=== PATIENT | female | born 2000 | race Caucasian/White ===

== ENCOUNTER 2021-12-20 09:49 | Inpatient (IN) ==
[2021-12-20 10:34] LABS: Appearance Urine Clear (Clear); Bilirubin Urine Negative (Negative); Blood Urine Negative (Negative); Color Urine Yellow; Glucose Urine UA Negative (Negative); Ketones Urine Negative (Negative); Leukocyte Esterase Urine Negative (Negative); Nitrite Urine Negative (Negative); Protein Urine Negative (Negative); Specific Gravity Urine 1.021 (1.000-1.030); Urobilinogen Urine Negative (Negative); pH Urine 6.5 (4.5-7.5)
[2021-12-20 11:05] LABS: Basophils # (auto) 0.01 K/uL (0-0.2); Basophils % (auto) 0.2 %; Eosinophils % (auto) 2.2 %; Hematocrit (blood only) 38.4 % (37-47); Immature Granulocytes # (auto) 0.01 K/uL (0.00-0.02); Immature Granulocytes % (auto) 0.2 %; Lymphocytes # (auto) 0.95 K/uL (1.2-3.4); Lymphocytes % (auto) 21.2 %; Mean Corpuscular Hemoglobin 28.7 pg (25-34); Mean Corpuscular Hgb Conc 33.9 g/dL (32-36); Mean Corpuscular Volume 84.8 fL (80-100); Mean Platelet Volume 10.1 fL (7.4-10.4); Monocytes # (auto) 0.44 K/uL (0.11-0.59); Monocytes % (auto) 9.8 %; Neutrophils # (auto) 2.98 K/uL (1.4-6.5); Neutrophils % (auto) 66.4 %; Platelet Count 286 K/uL (130-400); RDW Coefficient of Variation 13.2 % (11.5-14.5); RDW Standard Deviation 40.4 fL (36.4-46.3); Red Blood Count 4.53 M/uL (4.2-5.4); White Blood Count 4.49 K/uL (4.8-10.8)
--- NOTE | 2021-12-20 11:08 | Emergency Department Note ---
Impression & Plan Mood disorder, Suicidal ideation ED Provider Note INFORMANT: Patient and family ED PROVIDER(S): Stef Banerjee MD CHIEF COMPLAINT: suicidal ideation PLAN: Disposition: Admitted Condition: Good Outpatient prescription management: none Referral: None MEDICAL DECISION MAKING: Patient presented because of direction from her psychiatrist. She noted doing suicidal. Patient is voluntary. Her physical examination was done in outlined below. She had no focal findings. Patient was evaluated by the hourly shift manager. Blood work and urinalysis were also obtained. Blood work and urine testing was unremarkable. Patient was reassessed and was doing relatively well. 3 S. was consulted after hourly shift manager evaluated patient. Patient was evaluated by [facility] in the emergency department. Patient was accepted for inpatient treatment. Triage Nursing notes reviewed and agree them. Vital Signs: reviewed and remarkable for no significant abnormalities Differential diagnosis: Mood disorder, infection, hypoglycemia, electrolyte abnormalities, cardiac sources, intracerebral event, toxicologic, trauma, neurologic, as well as other pathologies. Diagnostics interpreted by me: ECG: none Cardiac Monitoring: none Imaging studies: Deferred HPI: The patient is a 21 year old female who presents to the Emergency Room with complaints of suicidal ideation. This started over the last few days and is persisting. Patient states that she was manic but then started to come down and has been very depressed recently. She has feelings of anxiety at times. She was evaluated by her psychiatrist today and was recommended to come into the hospital for medication modification and stabilization. Patient is voluntary. The patient also notes the following associated symptoms, poor sleep, energy, and initiative. Patient states that she has planned but has not acted upon them. Notes occasional alcohol use and marijuana use. The patient has found no relieving factors. Current pain is rated as 0/10. No recent sick contacts or travel. Pt denies LOC, headache, fevers, chills, diaphoresis, visual changes, neck pain, chest pain, breathing difficulties, nausea, vomiting, abdominal pain, back pain, melena, hematochezia, urinary symptoms, numbness, weakness, lymphadenopathy, rash, or other complaints. ROS: See above HPI for pertinent positives & negatives. A total of 10 systems reviewed and were otherwise negative. PAST MEDICAL HISTORY:See Below , bipolar PAST SURGICAL HISTORY:See Below, FAMILY HISTORY:See Below SOCIAL HISTORY:See Below, occasional alcohol and marijuana HOME MEDICATIONS:See Below ALLERGIES:See Below VITALS:See Below PHYSICAL EXAMINATION: GENERAL: Awake, alert, depressed-appearing, in no distress HENT: Normocephalic, atraumatic. Oropharynx unremarkable. EYES: Normal conjunctiva. Sclera non-icteric. NECK: Inspection normal. Non-tender. Supple. No nuchal rigidity. FROM. No masses. RESPIRATORY: Clear to auscultation. No wheezes. No rales. Normal respiratory effort. CARDIAC: Normal rate. Normal rhythm. No murmurs. No rubs. Extremities warm and well perfused. Pulses equal. No JVD. GI: Soft, non-distended. No tenderness to palpation. No rebound or guarding. No masses. RECTAL: Deferred. MUSCULOSKELETAL: Atraumatic. Chest examination reveals no tenderness. The back is symmetrical on inspection without obvious abnormality. There is no CVA tenderness to palpation. No joint edema. LOWER EXTREMITIES: Calves are equal size bilaterally and non-tender. No edema. No discoloration. NEURO: Normal sensorium. No sensory or motor deficits noted. SKIN: No rash or jaundice noted. PSYCH: Depressed mood and flat affect. Suicidal ideation. No homicidal ideation. No hallucinations or delusions. Stef Banerjee MD Past Med/Surg History Medical History (Updated 12/20/21 @ 11:08 by Stef Banerjee MD) Laceration of eyebrow, left Pneumonia Surgical History No history of previous surgery Family History Denies family history of Ovarian cancer Breast cancer Colorectal cancer Uterine cancer Social History (Updated 04/12/21 @ 13:41 by YOLI Chino) Smoking Status: Never smoker Hx Alcohol Use: No Hx Substance Use: No Preferred Language: Mongolian Feels Safe at Home: No Allergies Allergies Allergy/AdvReac Type Severity Reaction Status Date / Time amoxicillin Allergy Verified 04/12/21 13:39 Home Meds Home Medications Medication Instructions Recorded Confirmed aripiprazole 5 mg tablet (Abilify) 5 mg PO DAILY 04/12/21 12/20/21 escitalopram oxalate 5 mg tablet 10 mg PO DAILY 04/12/21 12/20/21 (Lexapro) bupropion HCl 200 mg tablet,12 hr 200 mg PO DAILY 12/20/21 12/20/21 sustained-release (Wellbutrin SR) Results & Data (ED) Vital Signs Vital Signs - 24 hr 12/20/21 09:49 12/20/21 09:51 Temperature 36.4 C L Temperature Source Temporal Artery Scan Pulse Rate 67 Respiratory Rate 18 16 Respiratory Depth Normal Blood Pressure 122/79 Blood Pressure Mean 93 Pulse Oximetry 96 Oxygen Delivery Method Room Air Sepsis Recent Fever Within 48 Hours No Sepsis New/Unexplained Change in Mental Status No Sepsis Action Taken by Nursing No Action Required Laboratory Data Result diagrams: 12/20/21 10:45 12/20/21 10:45 Lab Results 12/20/21 12/20/21 12/20/21 Range/Units 10:01 10:01 10:08 WBC (4.8-10.8) K/uL RBC (4.2-5.4) M/uL Hgb (12.0-16.0) g/dL Hct (37-47) % MCV (80-100) fL MCH (25-34) pg MCHC (32-36) g/dL RDW Std Deviation (36.4-46.3) fL RDW Coeff of Felix (11.5-14.5) % Plt Count (130-400) K/uL MPV (7.4-10.4) fL Immature Gran % (Auto) % Neut % (Auto) % Lymph % (Auto) % [place] % (Auto) % Eos % (Auto) % Baso % (Auto) % Neut # (Auto) (1.4-6.5) K/uL Lymph # (Auto) (1.2-3.4) K/uL [place] # (Auto) (0.11-0.59) K/uL Eos # (Auto) (0-0.5) K/uL Baso # (Auto) (0-0.2) K/uL Immature Gran # (Auto) (0.00-0.02) K/uL Sodium (136-145) mmol/L Potassium (3.5-5.1) mmol/L Chloride (98-107) mmol/L Carbon Dioxide (21-32) mmol/L Anion Gap (3-11) BUN (6-23) mg/dl Creatinine (0.6-1.2) mg/dl Est Cr Clr Drug Dosing ml/min Est GFR ( Amer) ml/min Est GFR (Non-Af Amer) ml/min BUN/Creatinine Ratio (10-20) Glucose (70-99(Fasting)) mg/dl Calcium (8.5-10.1) mg/dl Total Bilirubin (0.2-1.0) mg/dl AST (13-39) U/L ALT (7-52) U/L Alkaline Phosphatase (34-104) U/L Total Protein (6.0-8.3) gm/dl Albumin (3.4-5.0) gm/dl Globulin (2.5-4.0) gm/dl Albumin/Globulin Ratio (0.9-2) TSH (0.300-4.500) uIu/ml Urine Color Yellow Urine Appearance Clear (Clear) Urine pH 6.5 (4.5-7.5) Ur Specific [place] 1.021 (1.000-1.030) Urine Protein Negative (Negative) Urine Glucose (UA) Negative (Negative) Urine Ketones Negative (Negative) Urine Blood Negative (Negative) Urine Nitrite Negative (Negative) Urine Bilirubin Negative (Negative) Urine Urobilinogen Negative (Negative) Ur Leukocyte Esterase Negative (Negative) POC Ur Test (NEG) Salicylates (3.0-30) mg/dl Urine Opiates Screen Neg (Neg) Ur Methadone, Qual Neg (Neg) Acetaminophen (10-30) ug/ml Urine Barbiturates Neg (Neg) Ur Phencyclidine (PCP) Neg (Neg) U Amphetamin/Meth Scrn Neg (Neg) MDMA (Ecstasy) Screen Pos H (Neg) U Benzodiazepines Scrn Neg (Neg) Ur Cocaine Metabolite Neg (Neg) U Marijuana (THC) Screen Pos H (Neg) Ethyl Alcohol mg/dL (<10.0) mg/dl SARS-CoV-2, RNA, NAAT NEGATIVE (NEGATIVE) 12/20/21 12/20/21 12/20/21 Range/Units 10:25 10:45 10:45 WBC 4.49 L (4.8-10.8) K/uL RBC 4.53 (4.2-5.4) M/uL Hgb 13.0 (12.0-16.0) g/dL Hct 38.4 (37-47) % MCV 84.8 (80-100) fL MCH 28.7 (25-34) pg MCHC 33.9 (32-36) g/dL RDW Std Deviation 40.4 (36.4-46.3) fL RDW Coeff of Felix 13.2 (11.5-14.5) % Plt Count 286 (130-400) K/uL MPV 10.1 (7.4-10.4) fL Immature Gran % (Auto) 0.2 % Neut % (Auto) 66.4 % Lymph % (Auto) 21.2 % [place] % (Auto) 9.8 % Eos % (Auto) 2.2 % Baso % (Auto) 0.2 % Neut # (Auto) 2.98 (1.4-6.5) K/uL Lymph # (Auto) 0.95 L (1.2-3.4) K/uL [place] # (Auto) 0.44 (0.11-0.59) K/uL Eos # (Auto) 0.10 (0-0.5) K/uL Baso # (Auto) 0.01 (0-0.2) K/uL Immature Gran # (Auto) 0.01 (0.00-0.02) K/uL Sodium 138 (136-145) mmol/L Potassium 4.1 (3.5-5.1) mmol/L Chloride 106 (98-107) mmol/L Carbon Dioxide 25 (21-32) mmol/L Anion Gap 7 (3-11) BUN 15 (6-23) mg/dl Creatinine 0.93 (0.6-1.2) mg/dl Est Cr Clr Drug Dosing 92.8 ml/min Est GFR ( Amer) 102.5 ml/min Est GFR (Non-Af Amer) 88.5 ml/min BUN/Creatinine Ratio 16.1 (10-20) Glucose 81 (70-99(Fasting)) mg/dl Calcium 9.5 (8.5-10.1) mg/dl Total Bilirubin 0.8 (0.2-1.0) mg/dl AST 22 (13-39) U/L ALT 16 (7-52) U/L Alkaline Phosphatase 55 (34-104) U/L Total Protein 7.6 (6.0-8.3) gm/dl Albumin 4.6 (3.4-5.0) gm/dl Globulin 3.0 (2.5-4.0) gm/dl Albumin/Globulin Ratio 1.5 (0.9-2) TSH (0.300-4.500) uIu/ml Urine Color Urine Appearance (Clear) Urine pH (4.5-7.5) Ur Specific [place] (1.000-1.030) Urine Protein (Negative) Urine Glucose (UA) (Negative) Urine Ketones (Negative) Urine Blood (Negative) Urine Nitrite (Negative) Urine Bilirubin (Negative) Urine Urobilinogen (Negative) Ur Leukocyte Esterase (Negative) POC Ur Test NEG (NEG) Salicylates (3.0-30) mg/dl Urine Opiates Screen (Neg) Ur Methadone, Qual (Neg) Acetaminophen (10-30) ug/ml Urine Barbiturates (Neg) Ur Phencyclidine (PCP) (Neg) U Amphetamin/Meth Scrn (Neg) MDMA (Ecstasy) Screen (Neg) U Benzodiazepines Scrn (Neg) Ur Cocaine Metabolite (Neg) U Marijuana (THC) Screen (Neg) Ethyl Alcohol mg/dL (<10.0) mg/dl SARS-CoV-2, RNA, NAAT (NEGATIVE) 12/20/21 12/20/21 12/20/21 Range/Units 10:45 10:45 10:45 WBC (4.8-10.8) K/uL RBC (4.2-5.4) M/uL Hgb (12.0-16.0) g/dL Hct (37-47) % MCV (80-100) fL MCH (25-34) pg MCHC (32-36) g/dL RDW Std Deviation (36.4-46.3) fL RDW Coeff of Felix (11.5-14.5) % Plt Count (130-400) K/uL MPV (7.4-10.4) fL Immature Gran % (Auto) % Neut % (Auto) % Lymph % (Auto) % [place] % (Auto) % Eos % (Auto) % Baso % (Auto) % Neut # (Auto) (1.4-6.5) K/uL Lymph # (Auto) (1.2-3.4) K/uL [place] # (Auto) (0.11-0.59) K/uL Eos # (Auto) (0-0.5) K/uL Baso # (Auto) (0-0.2) K/uL Immature Gran # (Auto) (0.00-0.02) K/uL Sodium (136-145) mmol/L Potassium (3.5-5.1) mmol/L Chloride (98-107) mmol/L Carbon Dioxide (21-32) mmol/L Anion Gap (3-11) BUN (6-23) mg/dl Creatinine (0.6-1.2) mg/dl Est Cr Clr Drug Dosing ml/min Est GFR ( Amer) ml/min Est GFR (Non-Af Amer) ml/min BUN/Creatinine Ratio (10-20) Glucose (70-99(Fasting)) mg/dl Calcium (8.5-10.1) mg/dl Total Bilirubin (0.2-1.0) mg/dl AST (13-39) U/L ALT (7-52) U/L Alkaline Phosphatase (34-104) U/L Total Protein (6.0-8.3) gm/dl Albumin (3.4-5.0) gm/dl Globulin (2.5-4.0) gm/dl Albumin/Globulin Ratio (0.9-2) TSH 1.465 (0.300-4.500) uIu/ml Urine Color Urine Appearance (Clear) Urine pH (4.5-7.5) Ur Specific [place] (1.000-1.030) Urine Protein (Negative) Urine Glucose (UA) (Negative) Urine Ketones (Negative) Urine Blood (Negative) Urine Nitrite (Negative) Urine Bilirubin (Negative) Urine Urobilinogen (Negative) Ur Leukocyte Esterase (Negative) POC Ur Test (NEG) Salicylates < 3.0 L (3.0-30) mg/dl Urine Opiates Screen (Neg) Ur Methadone, Qual (Neg) Acetaminophen < 3 L (10-30) ug/ml Urine Barbiturates (Neg) Ur Phencyclidine (PCP) (Neg) U Amphetamin/Meth Scrn (Neg) MDMA (Ecstasy) Screen (Neg) U Benzodiazepines Scrn (Neg) Ur Cocaine Metabolite (Neg) U Marijuana (THC) Screen (Neg) Ethyl Alcohol mg/dL < 10.0 (<10.0) mg/dl SARS-CoV-2, RNA, NAAT (NEGATIVE) Discharge Plan Visit Data Chief Complaint: Mental Health Evaluation Stated Complaint: MENTAL HEALTH EVALUATION, SUICIDAL THOUGHTS ED Provider: Stef Banerjee Discharge Problem: Mood disorder, Suicidal ideation Forms Stand Alone Forms: [facility], Suicide Prevention Resources Prescriptions Prescriptions: No Action escitalopram oxalate [Lexapro] 5 mg tablet 10 mg PO DAILY RF: 0 aripiprazole [Abilify] 5 mg tablet 5 mg PO DAILY RF: 0 bupropion HCl [Wellbutrin SR] 200 mg tablet sustained-release 12 hr 200 mg PO DAILY RF: 0 Referrals Referrals: Aakash Sheppard MD [Primary Care Provider] -
[2021-12-20 11:12] LABS: Amphetamines+Metham, Urine Neg (Neg); Barbiturates, Urine Neg (Neg); Benzodiazepine, Urine Neg (Neg); Cocaine, Urine Neg (Neg); MDMA (Ecstacy), Urine Pos (Neg); Methadone, Urine Neg (Neg); Opiate, Urine Neg (Neg); Phencyclidine, Urine Neg (Neg)
[2021-12-20 11:19] LABS: Acetaminophen < 3 ug/ml (10-30); Salicylate < 3.0 mg/dl (3.0-30)
[2021-12-20 11:20] LABS: Albumin Globulin Ratio 1.5 (0.9-2); Albumin Level 4.6 gm/dl (3.4-5.0); BUN Creatinine Ratio 16.1 (10-20); Bilirubin,Total 0.8 mg/dl (0.2-1.0); Calcium 9.5 mg/dl (8.5-10.1); Creatinine Clr Calc Pharmacy 92.8 ml/min; Est GFR (African American) 102.5 ml/min; Est GFR (Non-African American) 88.5 ml/min; Potassium 4.1 mmol/L (3.5-5.1); Total Protein 7.6 gm/dl (6.0-8.3)
[2021-12-20] MEDS ORDERED: ALUMINUM/MAGNESIUM SUSP 30 ML UDC PO PRN (13:01)
[2021-12-20] MEDS ORDERED: hydrOXYzine HCl 25 MG TAB PO PRN ×2 (13:01)
[2021-12-20] MEDS ORDERED: BISMUTH SUBSALICYLATE LIQD 236 ML PO PRN (13:01)
[2021-12-20] MEDS ORDERED: MAGNESIUM HYDROXIDE SUSP 30 ML UDC PO PRN (13:01)
[2021-12-20] MEDS ORDERED: SODIUM CHLORIDE 0.65% NA SOLN 45 ML (OCEAN) PRN (13:01)
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
[2021-12-20] MEDS ORDERED: ARIPiprazole 5 MG TAB PO SCH (22:00)
[2021-12-21 08:40] LABS: Chol HDL Ratio 2.8 (0-5)
[2021-12-21] MEDS: buPROPion XL 150 MG TABCR PO SCH (08:42)
--- NOTE | 2021-12-21 08:57 | Psychiatric Progress Note ---
Date of Service December 21, 2021 Impression / Recommendations Impression The patient is a 21 year old with a history of depression, anxiety and impulsivity with recent concern for extended period of hypomania who was admitted for worsening depression and SI with plan of overdosing. Diagnostically unclear but has variable mood symptoms from depressive episodes to hypomania and family history of BPAD to support likely BPAD type II versus MDD with ADHD/substance use leading to disinhibition/impulsivity versus BPD (though no clear traits except self-harm in the past and many things to point away from this) versus substance-induced. Activation on Wellbutrin possible but dose remains fairly low and had elevated mood episodes in the past before Wellbutrin adjustment. The patient is deemed unstable and requires psychiatric hospitalization for diagnostic clarification, safety and stabilization, medication management and development of further coping skills. 12/21/21: Discussed literature on mood stabilizers that she reviewed and reviewed differential diagnosis including potential for age-normative impulsivity related to maturing pre-frontal cortex vs BPD traits based on Ramirez screen results. She did score positive on mood disorder questionnaire and given history of prior extended periods of impulsivity with elevated mood, risk taking, and decreased need for sleep she wants to start a mood stabilizer for working diagnosis of BPAD Type II. She doesn't want to try lamictal as she can forget to take medications and doesn't want to try a higher dose of abilify or alternative antipsychotic. Her preference is lithium or depakote. We reviewed risks/benefits/alternatives and she would like to start [place]. She would like to get a baseline EKG. Starting [place]: TSH, Cr, electrolytes, LFTs, CBC with platelets, negative urine test all reviewed and wnl. EKG pending. Patient educated on risks/side effects including but not limited to avoidance of dehydration, renal, thyroid, cardiac, drug interactions (NSAIDs, ACEIs, angiotensin receptor antagonists), toxicity if level not routinely monitored and risks. Fasting labs reviewed and wnl. (1) Bipolar 2 disorder: (2) Bipolar disorder with severe depression: (3) Mood disorder: (4) Suicidal ideation: 12/21/21: Will start [place] carbonate (LiCO3) 300mg qhs. Repeat Li level, TSH, Cr after 1 week on 12/28/21 . Discontinue abilify. Continue Wellbutrin and lexapro. 12/20/21: The patient was admitted to the [facility] ([facility] mental [facility]) on q15 min checks (behavioral with suicide precautions) for safety. The patient will participate in group, recreational, and milieu therapies and will be offered additional individual and family sessions as clinically appropriate. -Continue abilify, lexapro for now -Decrease to Wellbutrin XL 150mg qd -Reach out to Dr. 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 Chief Complaint "I'm weirdly neutral". Review of Systems Sleep Information Total Hours of Sleep: 11 Meal Information Percent Meal Consumed - Dinner: 100 Subjective Subjective Patient was seen & assessed and interval progress reviewed with treatment team nursing and social work. [place] overwhelmed last night. Slept a lot. She spent time reading over patient literature on mood stabilizer medication options and discussed it with her mother as well last night. Discussion per assessment below. Continues to feel depressed. Engaging with groups. Physical Exam Psychiatric Orientation: alert and oriented x 3 Apperance: appropriately dressed and appropriately groomed Eye Contact: good eye contact Motor Behavior: no abnormal motor movements Speech: normal rate/rhythm/volume of speech Affect: + depressed affect and + anxious affect Mood: + depressed mood and + anxious mood Thought Process: goal directed thought process Thought Content: reality based without delusions Suicidal Thoughts: denies suicidal intent; + reports suicidal thoughts ( prior to admission but not currently ) and + reports suicidal plan (plan to overdose prior to admission, but not on unit, feels safe) Homicidal Thoughts: denies homicidal thoughts Hallucinations: no auditory hallucinations and no visual hallucinations Cognition: recent memory grossly intact, remote memory grossly intact, attention grossly intact and language grossly intact Estimated Intelligence: consistent with education level Insight: + fair insight Judgement: + fair judgement Vital Signs (Past 24 Hours) Last Vital Signs Temp 36.9 C 12/21/21 06:00 Pulse 90 12/21/21 06:34 Resp 18 12/21/21 06:00 BP 104/64 12/21/21 06:34 Pulse Ox 96 12/20/21 09:51 Results & Data ([facility]) Laboratory Results Laboratory Results - last 24 hr 12/20/21 12/20/21 12/20/21 10:01 10:01 10:01 WBC RBC Hgb Hct MCV MCH MCHC RDW Std Deviation RDW Coeff of Felix Plt Count MPV Immature Gran % (Auto) Neut % (Auto) Lymph % (Auto) [place] % (Auto) Eos % (Auto) Baso % (Auto) Neut # (Auto) Lymph # (Auto) [place] # (Auto) Eos # (Auto) Baso # (Auto) Immature Gran # (Auto) Sodium Potassium Chloride Carbon Dioxide Anion Gap BUN Creatinine Est Cr Clr Drug Dosing Est GFR ( Amer) Est GFR (Non-Af Amer) BUN/Creatinine Ratio Glucose Fasting Glucose Calcium Total Bilirubin AST ALT Alkaline Phosphatase Total Protein Albumin Globulin Albumin/Globulin Ratio Triglycerides Cholesterol LDL Cholesterol, Calc VLDL Cholesterol, Calc HDL Cholesterol Cholesterol/HDL Ratio TSH Urine Color Yellow Urine Appearance Clear Urine pH 6.5 Ur Specific [place] 1.021 Urine Protein Negative Urine Glucose (UA) Negative Urine Ketones Negative Urine Blood Negative Urine Nitrite Negative Urine Bilirubin Negative Urine Urobilinogen Negative Ur Leukocyte Esterase Negative POC Ur Test Salicylates Urine Opiates Screen Neg Ur Methadone, Qual Neg Acetaminophen Urine Barbiturates Neg Ur Phencyclidine (PCP) Neg U Amphetamin/Meth Scrn Neg Urine MDEA Pending MDMA (Ecstasy) Screen Pos H MDMA Pending Urine MDMA Pending U Benzodiazepines Scrn Neg Ur Cocaine Metabolite Neg U Marijuana (THC) Screen Pos H U Marijuana THC Carboxy Pending Drug Screen Comment Pending Ethyl Alcohol mg/dL SARS-CoV-2, RNA, NAAT 12/20/21 12/20/21 12/20/21 10:08 10:25 10:45 WBC 4.49 L RBC 4.53 Hgb 13.0 Hct 38.4 MCV 84.8 MCH 28.7 MCHC 33.9 RDW Std Deviation 40.4 RDW Coeff of Felix 13.2 Plt Count 286 MPV 10.1 Immature Gran % (Auto) 0.2 Neut % (Auto) 66.4 Lymph % (Auto) 21.2 [place] % (Auto) 9.8 Eos % (Auto) 2.2 Baso % (Auto) 0.2 Neut # (Auto) 2.98 Lymph # (Auto) 0.95 L [place] # (Auto) 0.44 Eos # (Auto) 0.10 Baso # (Auto) 0.01 Immature Gran # (Auto) 0.01 Sodium Potassium Chloride Carbon Dioxide Anion Gap BUN Creatinine Est Cr Clr Drug Dosing Est GFR ( Amer) Est GFR (Non-Af Amer) BUN/Creatinine Ratio Glucose Fasting Glucose Calcium Total Bilirubin AST ALT Alkaline Phosphatase Total Protein Albumin Globulin Albumin/Globulin Ratio Triglycerides Cholesterol LDL Cholesterol, Calc VLDL Cholesterol, Calc HDL Cholesterol Cholesterol/HDL Ratio TSH Urine Color Urine Appearance Urine pH Ur Specific [place] Urine Protein Urine Glucose (UA) Urine Ketones Urine Blood Urine Nitrite Urine Bilirubin Urine Urobilinogen Ur Leukocyte Esterase POC Ur Test NEG Salicylates Urine Opiates Screen Ur Methadone, Qual Acetaminophen Urine Barbiturates Ur Phencyclidine (PCP) U Amphetamin/Meth Scrn Urine MDEA MDMA (Ecstasy) Screen MDMA Urine MDMA U Benzodiazepines Scrn Ur Cocaine Metabolite U Marijuana (THC) Screen U Marijuana THC Carboxy Drug Screen Comment Ethyl Alcohol mg/dL SARS-CoV-2, RNA, NAAT NEGATIVE 12/20/21 12/20/21 12/20/21 10:45 10:45 10:45 WBC RBC Hgb Hct MCV MCH MCHC RDW Std Deviation RDW Coeff of Felix Plt Count MPV Immature Gran % (Auto) Neut % (Auto) Lymph % (Auto) [place] % (Auto) Eos % (Auto) Baso % (Auto) Neut # (Auto) Lymph # (Auto) [place] # (Auto) Eos # (Auto) Baso # (Auto) Immature Gran # (Auto) Sodium 138 Potassium 4.1 Chloride 106 Carbon Dioxide 25 Anion Gap 7 BUN 15 Creatinine 0.93 Est Cr Clr Drug Dosing 92.8 Est GFR ( Amer) 102.5 Est GFR (Non-Af Amer) 88.5 BUN/Creatinine Ratio 16.1 Glucose 81 Fasting Glucose Calcium 9.5 Total Bilirubin 0.8 AST 22 ALT 16 Alkaline Phosphatase 55 Total Protein 7.6 Albumin 4.6 Globulin 3.0 Albumin/Globulin Ratio 1.5 Triglycerides Cholesterol LDL Cholesterol, Calc VLDL Cholesterol, Calc HDL Cholesterol Cholesterol/HDL Ratio TSH 1.465 Urine Color Urine Appearance Urine pH Ur Specific [place] Urine Protein Urine Glucose (UA) Urine Ketones Urine Blood Urine Nitrite Urine Bilirubin Urine Urobilinogen Ur Leukocyte Esterase POC Ur Test Salicylates < 3.0 L Urine Opiates Screen Ur Methadone, Qual Acetaminophen < 3 L Urine Barbiturates Ur Phencyclidine (PCP) U Amphetamin/Meth Scrn Urine MDEA MDMA (Ecstasy) Screen MDMA Urine MDMA U Benzodiazepines Scrn Ur Cocaine Metabolite U Marijuana (THC) Screen U Marijuana THC Carboxy Drug Screen Comment Ethyl Alcohol mg/dL SARS-CoV-2, RNA, NAAT 12/20/21 12/21/21 10:45 07:57 WBC RBC Hgb Hct MCV MCH MCHC RDW Std Deviation RDW Coeff of Felix Plt Count MPV Immature Gran % (Auto) Neut % (Auto) Lymph % (Auto) [place] % (Auto) Eos % (Auto) Baso % (Auto) Neut # (Auto) Lymph # (Auto) [place] # (Auto) Eos # (Auto) Baso # (Auto) Immature Gran # (Auto) Sodium Potassium Chloride Carbon Dioxide Anion Gap BUN Creatinine Est Cr Clr Drug Dosing Est GFR ( Amer) Est GFR (Non-Af Amer) BUN/Creatinine Ratio Glucose Fasting Glucose 84 Calcium Total Bilirubin AST ALT Alkaline Phosphatase Total Protein Albumin Globulin Albumin/Globulin Ratio Triglycerides 75 Cholesterol 151 LDL Cholesterol, Calc 83 VLDL Cholesterol, Calc 15 HDL Cholesterol 53 Cholesterol/HDL Ratio 2.8 TSH Urine Color Urine Appearance Urine pH Ur Specific [place] Urine Protein Urine Glucose (UA) Urine Ketones Urine Blood Urine Nitrite Urine Bilirubin Urine Urobilinogen Ur Leukocyte Esterase POC Ur Test Salicylates Urine Opiates Screen Ur Methadone, Qual Acetaminophen Urine Barbiturates Ur Phencyclidine (PCP) U Amphetamin/Meth Scrn Urine MDEA MDMA (Ecstasy) Screen MDMA Urine MDMA U Benzodiazepines Scrn Ur Cocaine Metabolite U Marijuana (THC) Screen U Marijuana THC Carboxy Drug Screen Comment Ethyl Alcohol mg/dL < 10.0 SARS-CoV-2, RNA, NAAT Current Inpatient Medications Current Inpatient Medications: Current Inpatient Medications Acetaminophen (Acetaminophen 325 Mg Tab) 650 mg PO Q4H PRN PRN Reason: Headache or Minor Fever Stop: 01/19/22 13:00 Al Hydrox/Mg Hydrox/Simethicone (Aluminum/Magnesium Susp 30 Ml Udc) 30 ml PO Q4H PRN PRN Reason: GI Upset Stop: 01/19/22 13:00 Aripiprazole (Aripiprazole 5 Mg Tab) 5 mg PO HS CHRIS Stop: 01/19/22 21:59 Last Admin: 12/20/21 21:36 Dose: 5 mg Documented by: Bismuth Subsalicylate (Bismuth Subsalicylate Liqd 236 Ml) 15 ml PO PRN PRN PRN Reason: Loose Stool Stop: 01/19/22 13:00 Bupropion HCl (Bupropion Xl 150 Mg Tabcr) 150 mg PO QAM CHRIS Stop: 01/20/22 08:59 Last Admin: 12/21/21 08:42 Dose: 150 mg Documented by: Escitalopram Oxalate (Escitalopram Oxalate 10 Mg Tab) 10 mg PO HS CHRIS Stop: 01/21/22 21:59 Hydroxyzine HCl (Hydroxyzine Hcl 25 Mg Tab) 50 mg PO HSZ PRN PRN Reason: Insomnia Stop: 01/19/22 13:00 Hydroxyzine HCl (Hydroxyzine Hcl 25 Mg Tab) 25 mg PO Q4H PRN PRN Reason: Anxiety Stop: 01/19/22 13:00 Magnesium Hydroxide (Magnesium Hydroxide Susp 30 Ml Udc) 30 ml PO DAILY PRN PRN Reason: Constipation Stop: 01/19/22 13:00 Sodium Chloride (Sodium Chloride 0.65% Na Soln 45 Ml ([place])) 1 - 2 sprays NA PRN PRN PRN Reason: Nasal Dryness/Congestion Stop: 01/19/22 13:00 Mental Health & Subst Abuse Tx Therapist Name of Therapist: Milvia Garrett @[facility] Post Discharge Appointments Primary Care Physician Name Of Family Doctor: [facility]
[2021-12-21] MEDS ORDERED: ESCITALOPRAM OXALATE 10 MG TAB PO SCH (09:00)
--- NOTE | 2021-12-21 17:00 | Electrocardiogram Report ---
Test Reason : Blood Pressure : / mmHG Vent. Rate : 068 BPM Atrial Rate : 068 BPM P-R Int : 146 ms QRS Dur : 094 ms QT Int : 390 ms P-R-T Axes : 074 099 026 degrees QTc Int : 414 ms Normal sinus rhythm Rightward axis Diffuse Minor Nonspecific ST abnormality Abnormal ECG No previous ECGs available Confirmed by Pravin Murphy ([id number]) on 12/21/2021 5:00:04 PM Referred By: Trey Brown Confirmed By:Pravin Murphy
[2021-12-21] MEDS ORDERED: LITHIUM CARBONATE 300 MG TAB PO SCH ×2 (17:30→22:00)
[2021-12-22] MEDS: buPROPion XL 150 MG TABCR PO SCH (08:04)
--- NOTE | 2021-12-22 11:22 | Psychiatric Progress Note ---
Date of Service December 22, 2021 Impression / Recommendations Impression The patient is a 21 year old with a history of depression, anxiety and impulsivity with recent concern for extended period of hypomania who was admitted for worsening depression and SI with plan of overdosing. Diagnostically unclear but has variable mood symptoms from depressive episodes to hypomania and family history of BPAD to support likely BPAD type II versus MDD with ADHD/substance use leading to disinhibition/impulsivity versus BPD (though no clear traits except self-harm in the past and many things to point away from this) versus substance-induced. Activation on Wellbutrin possible but dose remains fairly low and had elevated mood episodes in the past before Wellbutrin adjustment. The patient is deemed unstable and requires psychiatric hospitalization for diagnostic clarification, safety and stabilization, medication management and development of further coping skills. 12/22/21: As per Dr. Sears above, gaining insight, remains unable to contract for safety outside of the hospital. EKG reviewed with [facility] hospitalist as outpatient of Dr. Sheppard, nonspecific ST wave changes noted on screening EKG likely clinically insignificant, was prior to start of lithium (t waves can flatten on lithium) so recommend repeat within a few days. (1) Bipolar 2 disorder: (2) Suicidal ideation: 12/22/21: change to lithobid with meal as less GI irritation. Patient notes some polyuria so far. Reviewed plan to repeat EKG and likely titrate. She also reported tremor and performance anxiety related to mock trials/debate and will make propranolol 10 mg BID trial for tremor prn (no performance anxiety here but would help with med related tremor). patient voiced good understanding of avoiding NSAIDs as outpatient and holding for dehydration/vomiting. 12/21/21: Will start [place] carbonate (LiCO3) 300mg qhs. Repeat Li level, TSH, Cr after 1 week on 12/28/21 . Discontinue abilify. Continue Wellbutrin and lexapro. 12/20/21: The patient was admitted to the [facility] ([facility] inpatient mental health unit) on q15 min checks (behavioral with suicide precautions) for safety. The patient will participate in group, recreational, and milieu therapies and will be offered additional individual and family sessions as clinically appropriate. -Continue abilify, lexapro for now -Decrease to Wellbutrin XL 150mg qd -Reach out to Dr. 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, supportive family and friends, outpatient providers, motivated to seek treatment/help Needs: safety and stabilization, medication adjustment, additional coping skills, increased outpatient services Suicide Risk Level Suicide Risk Level: Moderate (q15 min suicide checks) Risk Factors Assessment : Yes Do You Have Access To A Gun?: No Mental Health Diagnoses: Yes Family History of Suicide: Yes Hopelessness: Yes Protective Factors 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 Chief Complaint "I just had alot to [employer] and my friend wasn't supportive". Review of Systems Sleep Information Total Hours of Sleep: 7.75 Sleep Comments: pt on q-15 minute checks Meal Information Percent Meal Consumed - Breakfast: 100 Percent Meal Consumed - Lunch: 100 Percent Meal Consumed - Dinner: 100 Subjective Subjective Patient was seen & assessed and interval progress reviewed with nursing and social work. chart reviewed, admit for disinhibited behaviors. was hyperfocussed on timing of lithium. feelings hurt by male friend. Physical Exam Psychiatric Orientation: alert and oriented x 3 Apperance: appropriately dressed and appropriately groomed Eye Contact: good eye contact Motor Behavior: no abnormal motor movements Speech: normal rate/rhythm/volume of speech Affect: + depressed affect and + anxious affect Mood: + depressed mood and + anxious mood Thought Process: goal directed thought process Thought Content: reality based without delusions Suicidal Thoughts: denies suicidal thoughts (but "I'm fragile"), denies suicidal plan and denies suicidal intent Homicidal Thoughts: denies homicidal thoughts Hallucinations: no auditory hallucinations and no visual hallucinations Cognition: recent memory grossly intact, remote memory grossly intact, attention grossly intact and language grossly intact Estimated Intelligence: consistent with education level Insight: + fair insight Judgement: + fair judgement Vital Signs (Past 24 Hours) Last Vital Signs Temp 36.8 C 12/22/21 07:00 Pulse 77 12/22/21 07:01 Resp 16 12/22/21 07:00 BP 102/68 12/22/21 07:01 Pulse Ox 96 12/20/21 09:51 Results & Data ([facility]) Current Inpatient Medications Current Inpatient Medications: Current Inpatient Medications Acetaminophen (Acetaminophen 325 Mg Tab) 650 mg PO Q4H PRN PRN Reason: Headache or Minor Fever Stop: 01/19/22 13:00 Al Hydrox/Mg Hydrox/Simethicone (Aluminum/Magnesium Susp 30 Ml Udc) 30 ml PO Q4H PRN PRN Reason: GI Upset Stop: 01/19/22 13:00 Bismuth Subsalicylate (Bismuth Subsalicylate Liqd 236 Ml) 15 ml PO PRN PRN PRN Reason: Loose Stool Stop: 01/19/22 13:00 Bupropion HCl (Bupropion Xl 150 Mg Tabcr) 150 mg PO QAM CHRIS Stop: 01/20/22 08:59 Last Admin: 12/22/21 08:04 Dose: 150 mg Documented by: Escitalopram Oxalate (Escitalopram Oxalate 10 Mg Tab) 10 mg PO HS CHRIS Stop: 01/21/22 21:59 Hydroxyzine HCl (Hydroxyzine Hcl 25 Mg Tab) 50 mg PO HSZ PRN PRN Reason: Insomnia Stop: 01/19/22 13:00 Hydroxyzine HCl (Hydroxyzine Hcl 25 Mg Tab) 25 mg PO Q4H PRN PRN Reason: Anxiety Stop: 01/19/22 13:00 [place] Carbonate ([place] Carbonate 300 Mg Tab) 300 mg PO PM3S CHRIS Stop: 01/20/22 17:29 Last Admin: 12/21/21 18:07 Dose: 300 mg Documented by: Magnesium Hydroxide (Magnesium Hydroxide Susp 30 Ml Udc) 30 ml PO DAILY PRN PRN Reason: Constipation Stop: 01/19/22 13:00 Sodium Chloride (Sodium Chloride 0.65% Na Soln 45 Ml ([place])) 1 - 2 sprays NA PRN PRN PRN Reason: Nasal Dryness/Congestion Stop: 01/19/22 13:00 Mental Health & Subst Abuse Tx Psychiatrist Name of Psychiatrist: Ananda Orlando Psychiatrist's Date of Appointment with Psychiatrist: 01/22/22 Time of Appointment with Psychiatrist: 3:40 PM Psychiatric Appointment Comment: Telehealth - on cancellation list for earlier appointment Therapist Name of Therapist: Talib Garrett Therapist's Therapy Appointment Comment: [address] [place] [id number] Post Discharge Appointments Primary Care Physician Name Of Family Doctor: [facility]
[2021-12-22] MEDS ORDERED: PROPRANOLOL HCL 10 MG TAB PO PRN (13:16)
[2021-12-22] MEDS ORDERED: LITHIUM CARBONATE SLOW REL 300 MG TAB PO SCH (17:30)
[2021-12-22] MEDS: ESCITALOPRAM OXALATE 10 MG TAB PO SCH (21:15)
[2021-12-23] MEDS: buPROPion XL 150 MG TABCR PO SCH (08:20)
--- NOTE | 2021-12-23 13:02 | Psychiatric Progress Note ---
Date of Service December 23, 2021 Impression / Recommendations Impression The patient is a 21 year old with a history of depression, anxiety and impulsivity with recent concern for extended period of hypomania who was admitted for worsening depression and SI with plan of overdosing. Diagnostically unclear but has variable mood symptoms from depressive episodes to hypomania and family history of BPAD to support likely BPAD type II versus MDD with ADHD/substance use leading to disinhibition/impulsivity versus BPD (though no clear traits except self-harm in the past and many things to point away from this) versus substance-induced. Activation on Wellbutrin possible but dose remains fairly low and had elevated mood episodes in the past before Wellbutrin adjustment. The patient is deemed unstable and requires psychiatric hospitalization for diagnostic clarification, safety and stabilization, medication management and development of further coping skills. 12/23/21: minimal change. (1) Bipolar 2 disorder: (2) Suicidal ideation: 12/23/21: increase lithium to 600 mg with pm meal. repeat EKG in am. 12/22/21: change to lithobid with meal as less GI irritation. Patient notes some polyuria so far. Reviewed plan to repeat EKG and likely titrate. She also reported tremor and performance anxiety related to mock trials/debate and will make propranolol 10 mg BID trial for tremor prn (no performance anxiety here but would help with med related tremor). patient voiced good understanding of avoiding NSAIDs as outpatient and holding for dehydration/vomiting. 12/21/21: Will start [place] carbonate (LiCO3) 300mg qhs. Repeat Li level, TSH, Cr after 1 week on 12/28/21 . Discontinue abilify. Continue Wellbutrin and lexapro. 12/20/21: The patient was admitted to the [facility] ([facility] inpatient mental health unit) on q15 min checks (behavioral with suicide precautions) for safety. The patient will participate in group, recreational, and milieu therapies and will be offered additional individual and family sessions as clinically appropriate. -Continue abilify, lexapro for now -Decrease to Wellbutrin XL 150mg qd -Reach out to Dr. 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 Chief Complaint "I'm worried about my relationship with my dad". Review of Systems Sleep Information Total Hours of Sleep: 7.5 Sleep Comments: pt on q-15 minute checks Meal Information Percent Meal Consumed - Breakfast: 100 Percent Meal Consumed - Lunch: 90 Percent Meal Consumed - Dinner: 95 Subjective Subjective Patient was seen & assessed and interval progress reviewed with nursing and social work. Tolerating lithobid much better, denies tremor. Is focussed on therapeutic activities. Feels that anxiety "peaks through", tearful. Physical Exam Psychiatric Orientation: alert and oriented x 3 Apperance: appropriately dressed and appropriately groomed Eye Contact: good eye contact Motor Behavior: no abnormal motor movements Speech: normal rate/rhythm/volume of speech Affect: + depressed affect Mood: + depressed mood and + anxious mood Thought Process: goal directed thought process Thought Content: reality based without delusions Suicidal Thoughts: denies suicidal thoughts (but "I'm fragile"), denies suicidal plan and denies suicidal intent Homicidal Thoughts: denies homicidal thoughts Hallucinations: no auditory hallucinations and no visual hallucinations Cognition: recent memory grossly intact, remote memory grossly intact, attention grossly intact and language grossly intact Estimated Intelligence: consistent with education level Insight: + fair insight Judgement: + fair judgement Vital Signs (Past 24 Hours) Last Vital Signs Temp 36 C L 12/23/21 06:59 Pulse 97 H 12/23/21 07:00 Resp 16 12/23/21 06:59 BP 94/57 L 12/23/21 07:00 Pulse Ox 96 12/20/21 09:51 Results & Data ([facility]) Current Inpatient Medications Current Inpatient Medications: Current Inpatient Medications Acetaminophen (Acetaminophen 325 Mg Tab) 650 mg PO Q4H PRN PRN Reason: Headache or Minor Fever Stop: 01/19/22 13:00 Al Hydrox/Mg Hydrox/Simethicone (Aluminum/Magnesium Susp 30 Ml Udc) 30 ml PO Q4H PRN PRN Reason: GI Upset Stop: 01/19/22 13:00 Bismuth Subsalicylate (Bismuth Subsalicylate Liqd 236 Ml) 15 ml PO PRN PRN PRN Reason: Loose Stool Stop: 01/19/22 13:00 Bupropion HCl (Bupropion Xl 150 Mg Tabcr) 150 mg PO QAM CHRIS Stop: 01/20/22 08:59 Last Admin: 12/23/21 08:20 Dose: 150 mg Documented by: Escitalopram Oxalate (Escitalopram Oxalate 10 Mg Tab) 10 mg PO HS CHRIS Stop: 01/21/22 21:59 Last Admin: 12/22/21 21:15 Dose: 10 mg Documented by: Hydroxyzine HCl (Hydroxyzine Hcl 25 Mg Tab) 50 mg PO HSZ PRN PRN Reason: Insomnia Stop: 01/19/22 13:00 Hydroxyzine HCl (Hydroxyzine Hcl 25 Mg Tab) 25 mg PO Q4H PRN PRN Reason: Anxiety Stop: 01/19/22 13:00 [place] Carbonate ([place] Carbonate Slow Rel 300 Mg Tab) 600 mg PO DAILY@1730 CHRIS Stop: 01/22/22 17:29 Magnesium Hydroxide (Magnesium Hydroxide Susp 30 Ml Udc) 30 ml PO DAILY PRN PRN Reason: Constipation Stop: 01/19/22 13:00 Propranolol HCl (Propranolol Hcl 10 Mg Tab) 10 mg PO BID PRN PRN Reason: tremor Stop: 01/21/22 20:59 Sodium Chloride (Sodium Chloride 0.65% Na Soln 45 Ml ([place])) 1 - 2 sprays NA PRN PRN PRN Reason: Nasal Dryness/Congestion Stop: 01/19/22 13:00 Mental Health & Subst Abuse Tx Psychiatrist Name of Psychiatrist: Ananda Neville - Dr. Orlando Psychiatrist's Date of Appointment with Psychiatrist: 01/22/22 Time of Appointment with Psychiatrist: 3:40 PM Psychiatric Appointment Comment: Telehealth - on cancellation list for earlier appointment Therapist Name of Therapist: Talib Garrett Therapist's Therapy Appointment Comment: [address] [place] [id number] Post Discharge Appointments Primary Care Physician Name Of Family Doctor: [facility]
[2021-12-23] MEDS: LITHIUM CARBONATE SLOW REL 300 MG TAB PO SCH (17:15)
[2021-12-23] MEDS: ESCITALOPRAM OXALATE 10 MG TAB PO SCH (21:05)
[2021-12-24] MEDS: buPROPion XL 150 MG TABCR PO SCH (08:08)
--- NOTE | 2021-12-24 11:45 | Psychiatric Progress Note ---
Date of Service December 24, 2021 Impression / Recommendations Impression The patient is a 21 year old with a history of depression, anxiety and impulsivity with recent concern for extended period of hypomania who was admitted for worsening depression and SI with plan of overdosing. Diagnostically unclear but has variable mood symptoms from depressive episodes to hypomania and family history of BPAD to support likely BPAD type II versus MDD with ADHD/substance use leading to disinhibition/impulsivity versus BPD (though no clear traits except self-harm in the past and many things to point away from this) versus substance-induced. Activation on Wellbutrin possible but dose remains fairly low and had elevated mood episodes in the past before Wellbutrin adjustment. The patient is deemed unstable and requires psychiatric hospitalization for diagnostic clarification, safety and stabilization, medication management and development of further coping skills. 12/24/21: improving. (1) Bipolar 2 disorder: (2) Suicidal ideation: 12/24/21: continue current medication and treatment plan, family session 12/25/21. 12/23/21: increase lithium to 600 mg with pm meal. repeat EKG in am. 12/22/21: change to lithobid with meal as less GI irritation. Patient notes some polyuria so far. Reviewed plan to repeat EKG and likely titrate. She also reported tremor and performance anxiety related to mock trials/debate and will make propranolol 10 mg BID trial for tremor prn (no performance anxiety here but would help with med related tremor). patient voiced good understanding of avoiding NSAIDs as outpatient and holding for dehydration/vomiting. 12/21/21: Will start [place] carbonate (LiCO3) 300mg qhs. Repeat Li level, TSH, Cr after 1 week on 12/28/21 . Discontinue abilify. Continue Wellbutrin and lexapro. 12/20/21: The patient was admitted to the [facility] ([facility] mental [facility] unit) on q15 min checks (behavioral with suicide precautions) for safety. The patient will participate in group, recreational, and milieu therapies and will be offered additional individual and family sessions as clinically appropriate. -Continue abilify, lexapro for now -Decrease to Wellbutrin XL 150mg qd -Reach out to Dr. 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, supportive family and friends, outpatient providers, motivated to seek treatment/help Needs: safety and stabilization, medication adjustment, additional coping skills, increased outpatient services Suicide Risk Level Suicide Risk Level: Moderate (q15 min suicide checks) Suicide Risk Level Comments: Risk Factors Assessment : Yes Do You Have Access To A Gun?: No Mental Health Diagnoses: Yes Family History of Suicide: Yes Hopelessness: Yes Protective Factors 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 Chief Complaint "I guess I'm worried if my mood is even my trauma brain can't handle it or I'll be boring". Review of Systems Sleep Information Total Hours of Sleep: 7.5 Sleep Comments: pt on q-15 minute checks Meal Information Percent Meal Consumed - Breakfast: 100 Percent Meal Consumed - Lunch: 90 Percent Meal Consumed - Dinner: 100 Subjective Subjective Patient was seen & assessed and interval progress reviewed with nursing. Tolerating lithium. Making decisions about time off school. therapeutic activities in anticipation of meeting with mother. is scheduled to be in sister's wedding this weekend. Physical Exam Psychiatric Orientation: alert and oriented x 3 Apperance: appropriately dressed and appropriately groomed Eye Contact: good eye contact Motor Behavior: no abnormal motor movements Speech: normal rate/rhythm/volume of speech Affect: + depressed affect Mood: + depressed mood and + anxious mood Thought Process: goal directed thought process Thought Content: reality based without delusions Suicidal Thoughts: denies suicidal thoughts, denies suicidal plan and denies suicidal intent Homicidal Thoughts: denies homicidal thoughts Hallucinations: no auditory hallucinations and no visual hallucinations Cognition: recent memory grossly intact, remote memory grossly intact, attention grossly intact and language grossly intact Estimated Intelligence: consistent with education level Insight: + fair insight Judgement: + fair judgement Vital Signs (Past 24 Hours) Last Vital Signs Temp 36.1 C L 12/24/21 06:00 Pulse 80 07/04/22 06:00 Resp 16 12/24/21 06:00 BP 94/63 L 12/24/21 06:52 Pulse Ox 97 12/24/21 06:00 Results & Data ([facility]) Current Inpatient Medications Current Inpatient Medications: Current Inpatient Medications Acetaminophen (Acetaminophen 325 Mg Tab) 650 mg PO Q4H PRN PRN Reason: Headache or Minor Fever Stop: 01/19/22 13:00 Al Hydrox/Mg Hydrox/Simethicone (Aluminum/Magnesium Susp 30 Ml Udc) 30 ml PO Q4H PRN PRN Reason: GI Upset Stop: 01/19/22 13:00 Bismuth Subsalicylate (Bismuth Subsalicylate Liqd 236 Ml) 15 ml PO PRN PRN PRN Reason: Loose Stool Stop: 01/19/22 13:00 Bupropion HCl (Bupropion Xl 150 Mg Tabcr) 150 mg PO QAM CHRIS Stop: 01/20/22 08:59 Last Admin: 12/24/21 08:08 Dose: 150 mg Documented by: Escitalopram Oxalate (Escitalopram Oxalate 10 Mg Tab) 10 mg PO HS CHRIS Stop: 01/21/22 21:59 Last Admin: 12/23/21 21:05 Dose: 10 mg Documented by: Hydroxyzine HCl (Hydroxyzine Hcl 25 Mg Tab) 50 mg PO HSZ PRN PRN Reason: Insomnia Stop: 01/19/22 13:00 Hydroxyzine HCl (Hydroxyzine Hcl 25 Mg Tab) 25 mg PO Q4H PRN PRN Reason: Anxiety Stop: 01/19/22 13:00 [place] Carbonate ([place] Carbonate Slow Rel 300 Mg Tab) 600 mg PO DAILY@1730 [facility] Stop: 01/22/22 17:29 Last Admin: 12/23/21 17:15 Dose: 600 mg Documented by: Magnesium Hydroxide (Magnesium Hydroxide Susp 30 Ml Udc) 30 ml PO DAILY PRN PRN Reason: Constipation Stop: 01/19/22 13:00 Propranolol HCl (Propranolol Hcl 10 Mg Tab) 10 mg PO BID PRN PRN Reason: tremor Stop: 01/21/22 20:59 Sodium Chloride (Sodium Chloride 0.65% Na Soln 45 Ml ([place])) 1 - 2 sprays NA PRN PRN PRN Reason: Nasal Dryness/Congestion Stop: 01/19/22 13:00 Mental Health & Subst Abuse Tx Psychiatrist Name of Psychiatrist: Ananda Orlando Psychiatrist's Date of Appointment with Psychiatrist: 01/22/22 Time of Appointment with Psychiatrist: 3:40 PM Psychiatric Appointment Comment: Telehealth - on cancellation list for earlier appointment Therapist Name of Therapist: Talib Garrett Therapist's Therapy Appointment Comment: [address] [place] [id number] Post Discharge Appointments Primary Care Physician Name Of Family Doctor: [facility]
[2021-12-24 16:42] LABS: MDA negative; MDEA negative; MDMA (Ecstasy) Urine, Confirm negative; Marijuana Quant, GCMS Urine 31 ng/mL (<5)
[2021-12-24] MEDS: LITHIUM CARBONATE SLOW REL 300 MG TAB PO SCH (17:02)
[2021-12-24] MEDS: ESCITALOPRAM OXALATE 10 MG TAB PO SCH (21:55)
[2021-12-24] MEDS: ACETAMINOPHEN 325 MG TAB PO PRN (21:56)
[2021-12-25] MEDS: buPROPion XL 150 MG TABCR PO SCH (07:57)
--- NOTE | 2021-12-25 13:20 | Psychiatric Progress Note ---
Date of Service December 25, 2021 Impression / Recommendations Impression The patient is a 21 year old with a history of depression, anxiety and impulsivity with recent concern for extended period of hypomania who was admitted for worsening depression and SI with plan of overdosing. Diagnostically unclear but has variable mood symptoms from depressive episodes to hypomania and family history of BPAD to support likely BPAD type II versus MDD with ADHD/substance use leading to disinhibition/impulsivity versus BPD (though no clear traits except self-harm in the past and many things to point away from this) versus substance-induced. Activation on Wellbutrin possible but dose remains fairly low and had elevated mood episodes in the past before Wellbutrin adjustment. The patient is deemed unstable and requires psychiatric hospitalization for diagnostic clarification, safety and stabilization, medication management and development of further coping skills. 12/25/21: improving. (1) Bipolar 2 disorder: (2) Suicidal ideation: 12/25/21: coordinate care with Dr. Orlando lithium level would be due after discharge and may be able to get sooner appointment for closer monitoring. 12/24/21: continue current medication and treatment plan, family session 12/25/21. 12/23/21: increase lithium to 600 mg with pm meal. repeat EKG in am. 12/22/21: change to lithobid with meal as less GI irritation. Patient notes some polyuria so far. Reviewed plan to repeat EKG and likely titrate. She also reported tremor and performance anxiety related to mock trials/debate and will make propranolol 10 mg BID trial for tremor prn (no performance anxiety here but would help with med related tremor). patient voiced good understanding of avoiding NSAIDs as outpatient and holding for dehydration/vomiting. 12/21/21: Will start [place] carbonate (LiCO3) 300mg qhs. Repeat Li level, TSH, Cr after 1 week on 12/28/21 . Discontinue abilify. Continue Wellbutrin and lexapro. 12/20/21: The patient was admitted to the [facility]) on q15 min checks (behavioral with suicide precautions) for safety. The patient will participate in group, recreational, and milieu therapies and will be offered additional individual and family sessions as clinically appropriate. -Continue abilify, lexapro for now -Decrease to Wellbutrin XL 150mg qd -Reach out to Dr. 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, supportive family and friends, outpatient provide rs, motivated to seek treatment/help Needs: safety and stabilization, medication adjustment, additional coping skills, increased outpatient services Suicide Risk Level Suicide Risk Level: Moderate (q15 min suicide checks) Suicide Risk Level Comments: Risk Factors Assessment : Yes Do You Have Access To A Gun?: No Mental Health Diagnoses: Yes Family History of Suicide: Yes Hopelessness: Yes Protective Factors 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 Chief Complaint "[]". Review of Systems Sleep Information Total Hours of Sleep: 6.25 Sleep Comments: pt on q-15 minute checks Meal Information Percent Meal Consumed - Breakfast: 60 Percent Meal Consumed - Lunch: 100 Percent Meal Consumed - Dinner: 100 Subjective Subjective Patient was seen & assessed and interval progress reviewed with [treatment team] [nursing and social work] Physical Exam Psychiatric Orientation: alert and oriented x 3 Apperance: appropriately dressed and appropriately groomed Eye Contact: good eye contact Motor Behavior: no abnormal motor movements Speech: normal rate/rhythm/volume of speech Affect: + anxious affect Mood: + anxious mood Thought Process: goal directed thought process Thought Content: reality based without delusions Suicidal Thoughts: denies suicidal thoughts, denies suicidal plan and denies suicidal intent Homicidal Thoughts: denies homicidal thoughts Hallucinations: no auditory hallucinations and no visual hallucinations Cognition: recent memory grossly intact, remote memory grossly intact, attention grossly intact and language grossly intact Estimated Intelligence: consistent with education level Insight: + fair insight Judgement: + fair judgement Vital Signs (Past 24 Hours) Last Vital Signs Temp 36.9 C 12/25/21 06:52 Pulse 80 12/25/21 06:54 Resp 16 12/25/21 06:52 BP 100/65 07/05/22 06:54 Pulse Ox 97 12/24/21 06:00 Results & Data ([facility]) Laboratory Results Laboratory Results - last 24 hr 12/20/21 10:01 Urine MDEA negative MDMA negative Urine MDMA negative U Marijuana THC Carboxy 31 H Drug Screen Comment SEE NOTE Current Inpatient Medications Current Inpatient Medications: Current Inpatient Medications Acetaminophen (Acetaminophen 325 Mg Tab) 650 mg PO Q4H PRN PRN Reason: Headache or Minor Fever Stop: 01/19/22 13:00 Last Admin: 12/24/21 21:56 Dose: 650 mg Documented by: Al Hydrox/Mg Hydrox/Simethicone (Aluminum/Magnesium Susp 30 Ml Udc) 30 ml PO Q4H PRN PRN Reason: GI Upset Stop: 01/19/22 13:00 Bismuth Subsalicylate (Bismuth Subsalicylate Liqd 236 Ml) 15 ml PO PRN PRN PRN Reason: Loose Stool Stop: 01/19/22 13:00 Bupropion HCl (Bupropion Xl 150 Mg Tabcr) 150 mg PO QAM CHRIS Stop: 01/20/22 08:59 Last Admin: 12/25/21 07:57 Dose: 150 mg Documented by: Escitalopram Oxalate (Escitalopram Oxalate 10 Mg Tab) 10 mg PO HS CHRIS Stop: 01/21/22 21:59 Last Admin: 12/24/21 21:55 Dose: 10 mg Documented by: Hydroxyzine HCl (Hydroxyzine Hcl 25 Mg Tab) 50 mg PO HSZ PRN PRN Reason: Insomnia Stop: 01/19/22 13:00 Hydroxyzine HCl (Hydroxyzine Hcl 25 Mg Tab) 25 mg PO Q4H PRN PRN Reason: Anxiety Stop: 01/19/22 13:00 Last Admin: 12/25/21 09:05 Dose: 25 mg Documented by: [place] Carbonate ([place] Carbonate Slow Rel 300 Mg Tab) 600 mg PO DAILY@1730 CHRIS Stop: 01/22/22 17:29 Last Admin: 12/24/21 17:02 Dose: 600 mg Documented by: Magnesium Hydroxide (Magnesium Hydroxide Susp 30 Ml Udc) 30 ml PO DAILY PRN PRN Reason: Constipation Stop: 01/19/22 13:00 Propranolol HCl (Propranolol Hcl 10 Mg Tab) 10 mg PO BID PRN PRN Reason: tremor Stop: 01/21/22 20:59 Sodium Chloride (Sodium Chloride 0.65% Na Soln 45 Ml ([place])) 1 - 2 sprays NA PRN PRN PRN Reason: Nasal Dryness/Congestion Stop: 01/19/22 13:00 Mental Health & Subst Abuse Tx Psychiatrist Name of Psychiatrist: Ananda Orlando Psychiatrist's Date of Appointment with Psychiatrist: 01/22/22 Time of Appointment with Psychiatrist: 3:40 PM Psychiatric Appointment Comment: Telehealth - on cancellation list for earlier appointment Therapist Name of Therapist: Talib Garrett Therapist's Date of Therapist Appointment: 12/27/21 Time of Therapist Appointment: 8:00 a.m. Therapy Appointment Comment: [address] [place] [phone] Post Discharge Appointments Primary Care Physician Name Of Family Doctor: [facility] - Dr. Sheppard Primary Care Time of Appointment with PCP: Follow up as needed Provider Appointment Comment: [address] [place], [address] Contact Information Discharge Discharge Address: [address] [place] [address], [place] [address]
[2021-12-25] MEDS: LITHIUM CARBONATE SLOW REL 300 MG TAB PO SCH (17:18)
[2021-12-25] MEDS ORDERED: LITHIUM CARBONATE SLOW REL 300 MG TAB PO SCH (17:30)
[2021-12-25] MEDS: ACETAMINOPHEN 325 MG TAB PO PRN (20:36)
--- NOTE | 2021-12-25 21:10 | Electrocardiogram Report ---
Test Reason : Blood Pressure : / mmHG Vent. Rate : 061 BPM Atrial Rate : 061 BPM P-R Int : 148 ms QRS Dur : 096 ms QT Int : 390 ms P-R-T Axes : 063 071 015 degrees QTc Int : 392 ms Normal sinus rhythm with sinus arrhythmia Normal ECG When compared with ECG of 21-DEC-2021 14:05, No significant change was found Confirmed by Estiven Story ([id number]) on 12/25/2021 9:10:01 PM Referred By: Trey Brown Confirmed By:Estiven Story
[2021-12-25] MEDS: ESCITALOPRAM OXALATE 10 MG TAB PO SCH (21:59)
[2021-12-26] MEDS: buPROPion XL 150 MG TABCR PO SCH (08:32)
[2021-12-26] MEDS ORDERED: DESTROY THIS MEDICATION ONE (10:52)
--- NOTE | 2021-12-26 10:52 | Discharge Summary ---
Date of Service December 26, 2021 History of Present Illness As per Dr. Sears on admission: Karen presents for psychiatric admission for worsening depression and SI with plan of overdosing on medication including researching how much of her medication she would need to take for it to be fatal "it would need to be a lot of it". She reported this during her outpatient psychiatric appointment with Dr. Orlando who encouraged her to be evaluated at the ED. Her worsening depression follows a period of recently increased impulsivity/risk taking behaviors concerning for hypomania that resulted in a breakup with her boyfriend. Confirmed recent history as reported by ED CM: "Patient has been in a manic state for the past several weeks making very rash decisions and now feels she is in a more depressive/hypomanic state. Patient reports she has these manic episodes every 5 weeks or so. Patient had a sexual encounter with a chris, but has very little recollection about this encounter because she was intoxicated; and feels guilty because she cheated on her boyfriend. Last Friday, she broke up with her boyfriend of 7 months because of cheating on him and this has caused issues within their mutual social [place]. Patient also dyed her hair pink and this was very impulsive." She notes about 5 weeks of elevated mood with decreased need for sleep but still getting about 6 hours per night. She clarifies she did not get an emotional support dog, as reported in ED notes, but did get a pet ferret impulsively. She doesn't regret her recent choices but notes "I think I made them very impulsively". Notes she tends to drink more alcohol when she's in the elevated mood states, tends to spend a lot of money like buying things for her apartment, tends to sleep less about 6 hours per night and has a harder time falling asleep and wakes up earlier and with a lot of energy. Lately, over the last week she's been experiencing worsening depression and endorses depressive symptoms including tearfulness, anhedonia, decreased motivation, self-guilt, helplessness, hopelessness, decreased energy, fluctuating appetite, and increased sleep about 8 hours per night but it's been harder and harder for her to wake up in the morning. SI started yesterday and has been coming and going. She also endorses symptoms of anxiety including generalized worries, shakiness, easily overwhelmed and she had a panic attack yesterday but overall has had less anxiety since starting lexapro. Typically kiran hayes has panic attacks every 3 months or so. She is currently prescribed abilify 5mg qhs (~ 9 months), lexapro 10mg (~one year), Wellbutrin 200mg daily (~4-5 months, dose was increased at the end of October during major depressive episode and prior to the elevated mood). She thinks she's maybe had some possible weight gain with the combination of the medications. No other medication side effects. Psychiatric ROS notable for history of symptoms of hypomania-no hx legal issues or rapid speech or others noticing a significant change in behavior during elevated periods and never days with no sleep or <3 hours per night, self-harm (hx cutting and burning, last occurred last year), anxiety, depression, hx restrictive eating but denies hx purging and denies currently restricting. She endorses hx trauma but denies symptoms of PTSD, nor OCD. Physical Exam Psychiatric See admission H&P and DOD assessment. Vital Signs (Past 24 Hours) Last Vital Signs Temp 36.7 C 12/26/21 10:14 Pulse 80 12/26/21 10:14 Resp 16 12/26/21 10:14 BP 94/57 L 12/26/21 10:14 Pulse Ox 97 12/26/21 10:14 Principal Diagnosis bipolar II disorder Psychiatric Data See daily stay summary. In short, safety was maintained and the patient was cooperative with care. Medication changes included decrease in Wellbutrin, d/c of Abilify in favor of a trial of [place] and they tolerated this well. She also reported A family session was held with mother and safety plan was completed prior to discharge. She was counseled re: risks of teratrogenecity, toxicity, and sensitivity to alcohol with lithium. She was initially focussed on return to school/mock trial and sought medication for performance anxiety/tremor. Discussed propranolol 10 mg approx. 30 min prior to even and was ordered for prn use but did not require. She planned to take a semester off so rx and further discussion around this can be deferred to her outpatient psychiatrist. Dr. Orlando was updated re: her progress prior to discharge and agreed to provide a script for lithium level next week via her patient portal. Patient was made aware of this and was directed to call the office upon discharge for additional instructions/ability to move up appointment. Day of Discharge Assessment Today the patient voices readiness for discharge. They note improvement in mood and deny thoughts to harm self or others. Thoughts remain organized and they are improved from admission. There is no evidence of psychosis. They agree to take mediations as prescribed and keep follow-up appointments. They are stable for discharge to outpatient level of care. Transition of Care Transition Of Care Record: was reviewed with the patient Advance Directives Advance Directives Information Provided: Yes Advance Directives: No Mental Health Advance Directive: No Advance Directives on File: No Living Will: No Power of Chain Forming Machine Operator: No Advance Directives Reason:: Declines as Mental Health Visit. Suicide Risk Level Suicide Risk Level Comments: Suicide risk at discharge is deemed low as the patient is no longer requiring 24-hr monitoring, has a safety plan, and is free of suicidal ideation at discharge. 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 Relationships: Yes Supportive Family: Yes Good Rapport with Provider: Yes Tobacco Cessation at Discharge Tobacco Cessation Medication Prescribed at Discharge: Not Applicable/Non-Smoker Total Time Total Time Spent: Greater Than 30 Minutes Total Time Includes: Examination of the patient, Discharge Planning and Medication Reconciliation Discharge Data Lab Results 12/20/21 12/20/21 12/20/21 10:01 10:01 10:01 WBC RBC Hgb Hct MCV MCH MCHC RDW Std Deviation RDW Coeff of Felix Plt Count MPV Immature Gran % (Auto) Neut % (Auto) Lymph % (Auto) [place] % (Auto) Eos % (Auto) Baso % (Auto) Neut # (Auto) Lymph # (Auto) [place] # (Auto) Eos # (Auto) Baso # (Auto) Immature Gran # (Auto) Sodium Potassium Chloride Carbon Dioxide Anion Gap BUN Creatinine Est Cr Clr Drug Dosing Est GFR ( Amer) Est GFR (Non-Af Amer) BUN/Creatinine Ratio Glucose Fasting Glucose Calcium Total Bilirubin AST ALT Alkaline Phosphatase Total Protein Albumin Globulin Albumin/Globulin Ratio Triglycerides Cholesterol LDL Cholesterol, Calc VLDL Cholesterol, Calc HDL Cholesterol Cholesterol/HDL Ratio TSH Urine Color Yellow Urine Appearance Clear Urine pH 6.5 Ur Specific [place] 1.021 Urine Protein Negative Urine Glucose (UA) Negative Urine Ketones Negative Urine Blood Negative Urine Nitrite Negative Urine Bilirubin Negative Urine Urobilinogen Negative Ur Leukocyte Esterase Negative POC Ur Test Salicylates Urine Opiates Screen Neg Ur Methadone, Qual Neg Acetaminophen Urine Barbiturates Neg Ur Phencyclidine (PCP) Neg U Amphetamin/Meth Scrn Neg Urine MDEA negative MDMA (Ecstasy) Screen Pos H MDMA negative Urine MDMA negative U Benzodiazepines Scrn Neg Ur Cocaine Metabolite Neg U Marijuana (THC) Screen Pos H U Marijuana THC Carboxy 31 H Drug Screen Comment SEE NOTE Ethyl Alcohol mg/dL SARS-CoV-2, RNA, NAAT 12/20/21 12/20/21 12/20/21 10:08 10:25 10:45 WBC 4.49 L RBC 4.53 Hgb 13.0 Hct 38.4 MCV 84.8 MCH 28.7 MCHC 33.9 RDW Std Deviation 40.4 RDW Coeff of Felix 13.2 Plt Count 286 MPV 10.1 Immature Gran % (Auto) 0.2 Neut % (Auto) 66.4 Lymph % (Auto) 21.2 [place] % (Auto) 9.8 Eos % (Auto) 2.2 Baso % (Auto) 0.2 Neut # (Auto) 2.98 Lymph # (Auto) 0.95 L [place] # (Auto) 0.44 Eos # (Auto) 0.10 Baso # (Auto) 0.01 Immature Gran # (Auto) 0.01 Sodium Potassium Chloride Carbon Dioxide Anion Gap BUN Creatinine Est Cr Clr Drug Dosing Est GFR ( Amer) Est GFR (Non-Af Amer) BUN/Creatinine Ratio Glucose Fasting Glucose Calcium Total Bilirubin AST ALT Alkaline Phosphatase Total Protein Albumin Globulin Albumin/Globulin Ratio Triglycerides Cholesterol LDL Cholesterol, Calc VLDL Cholesterol, Calc HDL Cholesterol Cholesterol/HDL Ratio TSH Urine Color Urine Appearance Urine pH Ur Specific [place] Urine Protein Urine Glucose (UA) Urine Ketones Urine Blood Urine Nitrite Urine Bilirubin Urine Urobilinogen Ur Leukocyte Esterase POC Ur Test NEG Salicylates Urine Opiates Screen Ur Methadone, Qual Acetaminophen Urine Barbiturates Ur Phencyclidine (PCP) U Amphetamin/Meth Scrn Urine MDEA MDMA (Ecstasy) Screen MDMA Urine MDMA U Benzodiazepines Scrn Ur Cocaine Metabolite U Marijuana (THC) Screen U Marijuana THC Carboxy Drug Screen Comment Ethyl Alcohol mg/dL SARS-CoV-2, RNA, NAAT NEGATIVE 12/20/21 12/20/21 12/20/21 10:45 10:45 10:45 WBC RBC Hgb Hct MCV MCH MCHC RDW Std Deviation RDW Coeff of Felix Plt Count MPV Immature Gran % (Auto) Neut % (Auto) Lymph % (Auto) [place] % (Auto) Eos % (Auto) Baso % (Auto) Neut # (Auto) Lymph # (Auto) [place] # (Auto) Eos # (Auto) Baso # (Auto) Immature Gran # (Auto) Sodium 138 Potassium 4.1 Chloride 106 Carbon Dioxide 25 Anion Gap 7 BUN 15 Creatinine 0.93 Est Cr Clr Drug Dosing 92.8 Est GFR ( Amer) 102.5 Est GFR (Non-Af Amer) 88.5 BUN/Creatinine Ratio 16.1 Glucose 81 Fasting Glucose Calcium 9.5 Total Bilirubin 0.8 AST 22 ALT 16 Alkaline Phosphatase 55 Total Protein 7.6 Albumin 4.6 Globulin 3.0 Albumin/Globulin Ratio 1.5 Triglycerides Cholesterol LDL Cholesterol, Calc VLDL Cholesterol, Calc HDL Cholesterol Cholesterol/HDL Ratio TSH 1.465 Urine Color Urine Appearance Urine pH Ur Specific [place] Urine Protein Urine Glucose (UA) Urine Ketones Urine Blood Urine Nitrite Urine Bilirubin Urine Urobilinogen Ur Leukocyte Esterase POC Ur Test Salicylates < 3.0 L Urine Opiates Screen Ur Methadone, Qual Acetaminophen < 3 L Urine Barbiturates Ur Phencyclidine (PCP) U Amphetamin/Meth Scrn Urine MDEA MDMA (Ecstasy) Screen MDMA Urine MDMA U Benzodiazepines Scrn Ur Cocaine Metabolite U Marijuana (THC) Screen U Marijuana THC Carboxy Drug Screen Comment Ethyl Alcohol mg/dL SARS-CoV-2, RNA, NAAT 12/20/21 12/21/21 10:45 07:57 WBC RBC Hgb Hct MCV MCH MCHC RDW Std Deviation RDW Coeff of Felix Plt Count MPV Immature Gran % (Auto) Neut % (Auto) Lymph % (Auto) [place] % (Auto) Eos % (Auto) Baso % (Auto) Neut # (Auto) Lymph # (Auto) [place] # (Auto) Eos # (Auto) Baso # (Auto) Immature Gran # (Auto) Sodium Potassium Chloride Carbon Dioxide Anion Gap BUN Creatinine Est Cr Clr Drug Dosing Est GFR ( Amer) Est GFR (Non-Af Amer) BUN/Creatinine Ratio Glucose Fasting Glucose 84 Calcium Total Bilirubin AST ALT Alkaline Phosphatase Total Protein Albumin Globulin Albumin/Globulin Ratio Triglycerides 75 Cholesterol 151 LDL Cholesterol, Calc 83 VLDL Cholesterol, Calc 15 HDL Cholesterol 53 Cholesterol/HDL Ratio 2.8 TSH Urine Color Urine Appearance Urine pH Ur Specific [place] Urine Protein Urine Glucose (UA) Urine Ketones Urine Blood Urine Nitrite Urine Bilirubin Urine Urobilinogen Ur Leukocyte Esterase POC Ur Test Salicylates Urine Opiates Screen Ur Methadone, Qual Acetaminophen Urine Barbiturates Ur Phencyclidine (PCP) U Amphetamin/Meth Scrn Urine MDEA MDMA (Ecstasy) Screen MDMA Urine MDMA U Benzodiazepines Scrn Ur Cocaine Metabolite U Marijuana (THC) Screen U Marijuana THC Carboxy Drug Screen Comment Ethyl Alcohol mg/dL < 10.0 SARS-CoV-2, RNA, NAAT Hospital Course (1) Bipolar 2 disorder: (2) Suicidal ideation: 12/25/21: coordinate care with Dr. Orlando lithium level would be due after discharge and may be able to get sooner appointment for closer monitoring. 12/24/21: continue current medication and treatment plan, family session 12/25/21. 12/23/21: increase lithium to 600 mg with pm meal. repeat EKG in am. 12/22/21: change to lithobid with meal as less GI irritation. Patient notes some polyuria so far. Reviewed plan to repeat EKG and likely titrate. She also reported tremor and performance anxiety related to mock trials/debate and will make propranolol 10 mg BID trial for tremor prn (no performance anxiety here but would help with med related tremor). patient voiced good understanding of avoiding NSAIDs as outpatient and holding for dehydration/vomiting. 12/21/21: Will start [place] carbonate (LiCO3) 300mg qhs. Repeat Li level, TSH, Cr after 1 week on 12/28/21 . Discontinue abilify. Continue Wellbutrin and lexapro. 12/20/21: The patient was admitted to the [facility] ([facility] mental health unit) on q15 min checks (behavioral with suicide precautions) for safety. The patient will participate in group, recreational, and milieu therapies and will be offered additional individual and family sessions as clinically appropriate. -Continue abilify, lexapro for now -Decrease to Wellbutrin XL 150mg qd -Reach out to Dr. Orlando for any further collateral -[place] BPD screen and mood disorder questionnaire -Fasting labs in [facility] -Provided with patient educational handouts regarding medication options for mood stabilization as she wishes to review and discuss with her mother prior to making a decision Mental Health & Subst Abuse Tx Psychiatrist Name of Psychiatrist: Ananda Neville - Dr. Orlando Psychiatrist's Date of Appointment with Psychiatrist: 01/22/22 Time of Appointment with Psychiatrist: 3:40 PM Psychiatric Appointment Comment: Telehealth - on cancellation list for earlier appointment Psychiatrist Release of Information: Obtained, Reviewed and Signed Therapist Name of Therapist: Talib aGrrett Therapist's Date of Therapist Appointment: 12/27/21 Time of Therapist Appointment: 8:00 a.m. Therapy Appointment Comment: [address] [place] [id number] Therapist Release of Information: Obtained, Reviewed and Signed Post Discharge Appointments Primary Care Physician Name Of Family Doctor: [facility] - Dr. Sheppard Primary Care Time of Appointment with PCP: Follow up as needed Provider Appointment Comment: [address] [place], [address] Primary Care Release of Information: Obtained, Reviewed and Signed Smoking Cessation Counseling Tobacco Cessation Medication Prescribed at Discharge: Not Applicable/Non-Smoker Contact Information Discharge Discharge [address]: [address] [place] [id number] Discharge Plan Discharge Items Patient Disposition: Home - Self-Care Reason For Visit: MDD Discharge Diagnosis: bipolar II disorder Activity: Resume your previous activity Non-emergency contact: Primary Care Provider, Psychiatrist and Therapist Call non-emergency contact if: you have any medication questions and your symptoms worsen Follow-up/Referrals: Aakash Sheppard MD [Primary Care Provider] - Diet: Regular Addtl Attending Provider Instructions: SPECIAL CARE INSTRUCTIONS: 1. Follow through with your scheduled aftercare appointments. If unable to keep an appointment, please call to reschedule. 2. Take your medication only as prescribed. Medication should not be changed or stopped without the approval of your doctor. In the event of worsening symptoms or concerns about side effects, contact your doctor immediately. 3. Utilize new healthy coping skills, anger management skills, and stress management skills learned during your hospitalization. Journal feelings and process them with a support person. Identify stressors or situations that may result in relapse, deterioration or inappropriate behaviors and develop a plan to deal with those issues. 4. If your coping skills are ineffective and you are in crisis, contact your outpatient providers for direction. If unable to reach your providers, please call the [facility] CRISIS LINE AT , go to the [facility] walk-in center at [address], [address], [place], or go to the closest Emergency Room. 5. Avoid alcohol and un-prescribed drugs. 6. You have been provided with the Mental Health Advance Directives Pamphlet for your review. 7. Your condition is stable for discharge to outpatient level of care, but recovery is an ongoing process. Ifthoughts to harm yourself or others return, follow the safety plan developed during your stay. Planning for a safe return home includes securing weapons. Our treatment team recommends weaponsbe removed from the home until your outpatient provider reassesses your progress. In rare cases where the items themselvescannot be removed, guns and ammunitionshould be secured separatelyand keys stored by a reliable personoutside of the home. If you were admitted on an involuntary commitment, the police or other legal authorities may be involved in this process. AFTERCARE APPOINTMENTS: * Please call your insurance company prior to your scheduled appointment to confirm your aftercare providers are covered. Take your insurance information to your appointments. WHO TO CALL AND WHEN: Medical Emergencies: For questions or emergencies related to your hospital stay, please contact the Inpatient Behavioral Health Unit at [phone]. A [facility] tier is on-call 13/01 for the Behavioral Health Unit for emergencies At any time you feel your situation is an emergency, you may also call 911 immediately. Pending Studies at Discharge: Yes (will need lithium level in about 1 week. ) Stand-Alone Forms: My [address], Smoking Cessation Medications and DC Order Prescriptions: New lithium carbonate 300 mg Tablet Extended Release 600 mg PO DAILY@1730 30 Days Qty: 60 RF: 0 hydroxyzine HCl 25 mg Tablet 25 mg PO Q6 PRN (Reason: Anxiety) 30 Days Qty: 15 RF: 0 bupropion HCl 150 mg Tablet Extended Release 24 Hr 150 mg PO QAM Qty: 30 RF: 0 Continued escitalopram oxalate [Lexapro] 5 mg tablet 10 mg PO DAILY RF: 0 Discontinued aripiprazole [Abilify] 5 mg tablet 5 mg PO DAILY RF: 0 bupropion HCl [Wellbutrin SR] 200 mg tablet sustained-release 12 hr 200 mg PO DAILY RF: 0 Discharge Orders: Discharge Order (Routine); Ordered 12/26/21 Ordered By: Kendra Sullivan Admission Data Admit Date/Time: 12/20/21 13:01 Attending Provider: Kendra Sullivan Admit Provider: Harini Sears Primary Care Provider: Aakash Sheppard Other Interventions: Discharge Summary Assessment (RN) Last Done: 12/26/21 10:14 PSY Interdisciplinary Discharge Planning Last Done: 12/26/21 09:14 Coding Level of Care Code 59990 D/C day mgmt > 30 min Diagnoses Bipolar 2 disorder F31.81 Suicidal ideation R45.851
== END 2021-12-26 10:30 | disposition home or self-care (01) | DRG 885 ==
LOC: ED 09:49 → 3S 13:01 → SUATTDRO 13:01 → 3S 13:11